=== PATIENT | male | born 2000 | race Caucasian/White ===

== ENCOUNTER 2019-04-13 06:22 | Emergency (ER) | payer SELFPAY ==
[~2019-04-13] VITALS: Ht 177.8 cm; Wt 108.9 kg
[2019-04-13 06:22] VITALS: BP_SYST 155
--- NOTE | 2019-04-13 06:22 | NUR ---
[facility]
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
--- NOTE | 2019-04-13 06:30 | NUR ---
Dr. Perdue at bedside assessing pt.
[2019-04-13] MEDS ORDERED: DIPH-TET-PERTUS Vaccine 0.5 ML VIAL (ADACEL) I.M. ONE (06:45)
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
--- NOTE | 2019-04-13 06:50 | NUR ---
Pt to X-ray via W/C accompanied by tax revenue officer.
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
--- NOTE | 2019-04-13 07:02 | NUR ---
Steri-strips applied to small lac to left brow and covered with band-aid. Pt tolerated well.
--- NOTE | 2019-04-13 07:05 | NUR ---
Pt calls a relative to pick him up. Pt to ER waiting room, improvement to gait, no longer unsteady.
[2019-04-13 07:10] VITALS: BP_SYST 132
--- NOTE | 2019-04-13 07:10 | NUR ---
Patient given written and verbal discharge instructions and verbalizes understanding. ER MD discussed with patient the results and treatment provided. Patient in stable condition. ID arm band removed. No Rx given. Patient educated on pain management and to follow up with PMD. Pain Scale 2/10. Opportunity for questions provided and answered. Medication side effect fact sheet provided.
== END 2019-04-13 07:10 ==
LOC: SED 06:22
DX: S20.211A Contusion of right front wall of thorax, initial encounter (principal); S00.212A Abrasion of left eyelid and periocular area, initial encounter; J45.909 Unspecified asthma, uncomplicated; Y04.0XXA Assault by unarmed brawl or fight, initial encounter; Y93.89 Activity, other specified; Y92.89 Other specified places as the place of occurrence of the external cause; Y99.8 Other external cause status
CPT/HCPCS: 71045; 71100; 90715; 99283